=== PATIENT | female | born 1960 | race Caucasian/White ===

== ENCOUNTER 2018-09-18 16:57 | Inpatient (IN) | payer SELFPAY ==
[~2018-09-18] VITALS: Ht 167.6 cm; Wt 92.8 kg
[2018-09-18 19:03] LABS: BASOPHILS % (AUTO) 0.3 % (0.0-2.0); EOSINOPHILS % (AUTO) 5.6 % (0.0-6.0); HEMATOCRIT 42 % (33-45); HEMOGLOBIN 14.1 g/dL (11.5-14.8); LYMPHOCYTES # (AUTO) 1.1 /CMM (0.8-4.8); LYMPHOCYTES % (AUTO) 14.6 % (20.0-44.0); MEAN CORPUSCULAR HGB CONC 33 g/dl (31.0-36.0); MEAN CORPUSCULAR VOLUME 95 fL (82-100); MONOCYTES # (AUTO) 0.5 /CMM (0.1-1.30); MONOCYTES % (AUTO) 6.3 % (2.0-12.0); NEUTROPHILS # (AUTO) 5.6 /CMM (1.8-8.9); NEUTROPHILS % (AUTO) 73.2 % (43.0-81.0); PLATELET COUNT (AUTO) 259 /CMM (150-450); RED BLOOD CELL COUNT(AUTO) 4.45 MIL/uL (4.0-5.2); WHITE BLOOD COUNT (AUTO) 7.7 K/uL (4.3-11.0)
[2018-09-18 19:23] LABS: CARBON DIOXIDE 29 mmol/L (21-32); CHLORIDE 103 mmol/L (98-107); CREATININE 0.8 mg/dL (0.6-1.3); GLUCOSE 107 mg/dL (74-106); POTASSIUM 3.1 mmol/L (3.5-5.1); SODIUM SERUM 140 mmol/L (136-145); UREA NITROGEN, BLOOD 15 mg/dL (7-18)
[2018-09-18 19:33] LABS: ALANINE AMINOTRANSFERASE 24 U/L (12-78); ALBUMIN 3.3 g/dL (3.4-5.0); ALKALINE PHOSPHATASE 75 U/L (46-116); ASPARTATE AMINOTRANSFERASE 22 U/L (15-37); B-TYPE NATRIURETIC PEPTIDE 250 PG/ML (0-125); BILIRUBIN,DIRECT 0.1 mg/dL (0.0-0.2); BILIRUBIN,TOTAL 0.2 mg/dL (0.2-1.0); TOTAL PROTEIN, SERUM 9.2 g/dL (6.4-8.2)
[2018-09-18] MEDS ORDERED: VANCOMYCIN 1 GM in IV D5W 250 ML IV ONE (20:30)
[2018-09-18] MEDS ORDERED: PIPERACILLIN /TAZOBACTAM 3.375 G in IV D5W 50 ML IV ONE (20:30)
[2018-09-18] MEDS ORDERED: POTASSIUM CHLORIDE 20 MEQ TAB.PRT.SR PO ONE ×2 (21:00→21:30)
--- NOTE | 2018-09-18 21:05 | NUR ---
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
--- NOTE | 2018-09-18 21:11 | NUR ---
CALLED NURSING SUP. FOR MS BED
[2018-09-18] MEDS ORDERED: HYDROCODONE/APAP 5/325MG 1 EACH TABLET PO PRN (21:30)
[2018-09-18] MEDS ORDERED: ONDANSETRON HCL/PF 4 MG/2 ML VIAL IVP PRN (21:30)
[2018-09-18] MEDS ORDERED: ZOLPIDEM TARTRATE 5 MG TABLET PO PRN (21:30)
[2018-09-18] MEDS ORDERED: hydrALAZINE HCL 25 MG TABLET PO PRN (21:30)
[2018-09-18] MEDS ORDERED: MAG HYDROX/AL HYDROX/SIMETH 30 ML UDC PO PRN (21:30)
[2018-09-18] MEDS ORDERED: ACETAMINOPHEN 325 MG TABLET PO PRN (21:30)
[2018-09-18] MEDS ORDERED: MAGNESIUM HYDROXIDE 30 ML UDC PO PRN (21:30)
[2018-09-18] MEDS ORDERED: Z GUARD REMEDY 2 OZ OINT TP PRN (21:30)
--- NOTE | 2018-09-18 21:53 | NUR ---
MS [id number]
--- NOTE | 2018-09-18 22:21 | NUR ---
REPORT GIVEN ERNESTINA FARLEY FOR ALEX; SAGRARIO HASKINSE TRANSPORTED TO 3RD FLOOR VIA GURNEY WITH EMT
[2018-09-18 23:00] VITALS: BP 166/96
--- NOTE | 2018-09-18 23:00 | NUR ---
ADMISSION NOTES: RECEIVED REPORT FROM BRITTNI SCOTT RN. PT BROUGHT TO THE UNIT VIA GURNEY. PT A/O X3 UZBEK SPEAKING ONLY, MET WITH SON AT BED SIDE. ORIENTED PT TO UNIT POLICY AND HOURLY ROUNDING, USE OF CALL LIGHT. INVENTORY OF BELONGINGS COMPLETED BY DIANN LECHUGA. SKIN ASSESSMENT PERFORMED,PLEASE SEE SKIN ASSESSMENT LOG. INITIAL WOUND CARE PERFORMED, WOUND CONSULT OBTAINED. BLE OFFLOADED. VS TAKEN AND RECORDED. PT UNABLE TO TAKE REMAINING POTASSIUM PILLS. SAFETY PRECAUTIONS FOR FALL INITIATED, CALL LIGHT IN REACH, WILL CONTINUE MONITORING PT.
--- NOTE | 2018-09-18 23:30 | NUR ---
RN NOTES: PT REFUSING TO TAKE POTASSIUM TABLET AT THIS TIME, EDUCATION PROVIDED TO PT AND FAMILY
[2018-09-19] MEDS: ENOXAPARIN SODIUM 40 MG/0.4 ML DISP.SYRIN SQ SCH ×2 (00:17→21:49)
--- NOTE | 2018-09-19 00:18 | NUR ---
PRN ZOFRAN: PT NAUSEATED, REQUESTING FOR MEDICATION, PRN ZOFRAN 4MG IVP ADMINISTERED AT THIS TIME. WILL CONTINUE TO MONITOR AND REASSES
--- NOTE | 2018-09-19 00:32 | NUR ---
RN NOTES: MD CURRENTLY IN THE UNIT, INFORM ABOUT PT'S BEING NAUSEATED AND DOES NOT WANT TO TAKE THE 40 MEQ POTASSIUM, PER MD ITS OKAY NOT TO GIVE IT. MD MADE AWARE ABOUT PT'S TEMP 100.8 ZOFRAN FOR NAUSEA JUST ADMINISTERED, PER MD TO GIVE TYLENOL LATER WHEN NAUSEA SUBSIDES.
--- NOTE | 2018-09-19 00:53 | NUR ---
PRN TYLENOL: PRN TYLENOL 650 MG TAB ADMINISTERED FOR TEMP 103.0, COOLING MEASURES PROVIDED
--- NOTE | 2018-09-19 02:15 | NUR ---
RN NOTES: RECHECK PT'S VS, NOTED TEMP 101.5, GIVEN TYLENOL AT 0053, COOLING MEASURES PROVIDED, REMOVED EXCESS THICK BLANKET, WILL RECHECK TEMP AGAIN
[2018-09-19 02:19] VITALS: BP 101/39
[2018-09-19] MEDS ORDERED: HYDR25TA4 PO (02:19)
[2018-09-19] MEDS ORDERED: ASPI-605 PO (02:19)
[2018-09-19] MEDS ORDERED: PIPERACILLIN /TAZOBACTAM 2.25 G VIAL IV ONE (04:50)
--- NOTE | 2018-09-19 05:12 | NUR ---
RN NOTES: NEW ORDER FOR ZOSYN 4.5GM IVPB, MEDICATION OVERRIDE BY RECYCLE DRIVERCORINNE RAYO, MEDICATION AVAILABLE IS 2.25GM IV ZOSYN, (2) 2.25GM ZOSYN WILL BE ADMINISTER AT THIS TIME
[2018-09-19] MEDS ORDERED: PIPERACILLIN /TAZOBACTAM 4.5 G in IV D5W 50 ML IV SCH (06:00)
--- NOTE | 2018-09-19 06:53 | NUR ---
RN CLOSING NOTES: PT REMAINS ON RA, DENIES ANY PAIN OR DISCOMFORT. LATEST TEMP 99. IV ACCESS REMAINS PATENT AND FLUSHING WELL, ON HL. BLE DRESSING REMAIN C/D/I, NO ACTIVE BLEEDING NOTED. FOR WOUND AND SURGICAL CONSULT TODAY. VS REMAINS STABLE, NEEDS ATTENDED. SAFETY PRECAUTIONS FOR FALL REMAINS ENGAGED, CALL LIGHT IN REACH, WILL ENDORSE TO DAY RN FOR CONTINUITY OF CARE.
[2018-09-19 07:00] VITALS: BP 111/63
--- NOTE | 2018-09-19 07:00 | NUR ---
RECEIVED PT IN STABLE CONDITION . WILL CONTINUE TO MONITOR
[2018-09-19] MEDS ORDERED: FEE PK DOSING 1 MIN EA MC ONE (07:53)
[2018-09-19 08:00] VITALS: BP 111/63
[2018-09-19 08:08] LABS: BASOPHILS % (AUTO) 0.3 % (0.0-2.0); EOSINOPHILS % (AUTO) 0.2 % (0.0-6.0); HEMATOCRIT 40 % (33-45); HEMOGLOBIN 13.5 g/dL (11.5-14.8); LYMPHOCYTES # (AUTO) 0.2 /CMM (0.8-4.8); LYMPHOCYTES % (AUTO) 1.6 % (20.0-44.0); MEAN CORPUSCULAR HGB CONC 34 g/dl (31.0-36.0); MEAN CORPUSCULAR VOLUME 94 fL (82-100); MONOCYTES # (AUTO) 0.1 /CMM (0.1-1.30); MONOCYTES % (AUTO) 1.4 % (2.0-12.0); NEUTROPHILS % (AUTO) 96.5 % (43.0-81.0); PLATELET COUNT (AUTO) 194 /CMM (150-450); RED BLOOD CELL COUNT(AUTO) 4.29 MIL/uL (4.0-5.2); WHITE BLOOD COUNT (AUTO) 10.3 K/uL (4.3-11.0)
[2018-09-19 08:19] LABS: CALCIUM, SERUM 8.5 mg/dL (8.5-10.1); CREATININE 1.4 mg/dL (0.6-1.3); MAGNESIUM 1.8 mg/dL (1.8-2.4); PHOSPHORUS 2.6 mg/dL (2.5-4.9); POTASSIUM 3.3 mmol/L (3.5-5.1)
[2018-09-19 08:21] LABS: THYROID STIMULATING HORMONE 1.137 uIU/mL (0.358-3.74)
[2018-09-19] MEDS: ASPIRIN 81 MG TAB.CHEW PO SCH (09:24)
[2018-09-19] MEDS: LISINOPRIL (10MG) 10 MG TABLET PO SCH (09:24)
[2018-09-19] MEDS: VANCOMYCIN 1 GM in IV D5W 250 ML IV SCH ×2 (10:22→21:49)
[2018-09-19] MEDS ORDERED: POTASSIUM CHLORIDE 20 MEQ TAB.PRT.SR PO SCH (11:30)
[2018-09-19] MEDS: PIPERACILLIN /TAZOBACTAM 3.375 G in IV D5W 50 ML IV SCH ×2 (12:15→18:57)
[2018-09-19 16:00] VITALS: BP 123/56
--- NOTE | 2018-09-19 19:24 | NUR ---
PATIENT S/P DEBRIDEMENT AT BED SIDE, DRESSING IS CLEAN. IV ACCESS REMAINS PATENT AND FLUSHING WELL HL.VS ARE STABLE, NO FEVER. SAFETY PRECAUTIONS FOR FALL OBSERVED, CALL LIGHT IN REACH, WILL ENDORSE TO NEXT SHIFT FOR CONTINUITY OF CARE.
--- NOTE | 2018-09-19 19:30 | NUR ---
MS/RN OPENING NOTES PT RECEIVED ASLEEP, DAUGHTER AT BEDSIDE. OPENS EYES TO NAME. A/OX3. ON ROOM AIR, BREATHING EVEN AND UNLABORED. DENIES SOB AND PAIN. IN NO ACUTE DISTRESS. IV TO LEFT HAND PATENT AND INTACT. BILATERAL LEG DRESSINGS C/D/I. BED IN LOW/LOCKED POSITION WITH CALL LIGHT IN REACH, HOB ELEVATED. BILATERAL UPPER SIDE RAILS IN PLACE. WILL CONTINUE TO MONITOR
[2018-09-19 20:00] VITALS: BP 122/71
--- NOTE | 2018-09-19 22:00 | NUR ---
MS/RN NOTES PT SITTING IN THE CHAIR. NEW LINENS PROVIDED. IV TO LEFT HAND INFILTRATED. ASSISTED PT BACK TO BED. NEW IV INSERTED TO RIGHT HAND #22, WITH GOOD BLOOD RETURN AND FLUSHES WELL. VANCOMYCIN INFUSING
[2018-09-20] MEDS: PIPERACILLIN /TAZOBACTAM 3.375 G in IV D5W 50 ML IV SCH ×4 (00:30→18:25)
--- NOTE | 2018-09-20 00:39 | NUR ---
MS/RN NOTES PT WITH EYES CLOSED, OPENS EYES TO BEDSIDE NOISE. DAUGHTER REMAINS AT BEDSIDE. NO NEEDS VERBALIZED AT THIS TIME.
--- NOTE | 2018-09-20 04:36 | NUR ---
MS/RN NOTES PT ASLEEP. IN NO ACUTE DISTRESS.
[2018-09-20 06:50] LABS: CALCIUM, SERUM 8.4 mg/dL (8.5-10.1); CREATININE 1.1 mg/dL (0.6-1.3); POTASSIUM 3.4 mmol/L (3.5-5.1)
--- NOTE | 2018-09-20 07:01 | NUR ---
WOUND CARE CONSULT WOUND CARE RECEIVED CONSULT FOR WOUNDS. WOUND CARE WILL DEFER CONSULT AND ALL TREATMENT PLANS TO DPM DR SAMSON WHO IS CURRENTLY FOLLOWING THIS PATIENT. PATIENT WITH NASH AT 18, ALL PRESSURE ULCER PREVENTION MEASURES ARE NOTED TO BE IN PLACE. WILL SEE PRN.
--- NOTE | 2018-09-20 07:13 | NUR ---
MS/RN CLOSING NOTES PT AWAKE, RESTING COMFORTABLY IN BED. ON ROOM AIR, BREATHING EVEN AND UNLABORED. DAUGHTER REMAINS AT BEDSIDE. DENIES SOB AND PAIN AT THIS TIME. DRESSINGS TO BLE C/D/I. IV TO RIGHT HAND PATENT AND INTACT. NO SIGNIFICANT CHANGES OVERNIGHT. SLEPT WELL DURING SHIFT. ALL NEEDS MET. BED REMAINS IN LOW/LOCKED POSITION WITH CALL LIGHT IN REACH, HOB ELEVATED AND BILATERAL UPPER SIDE RAILS IN PLACE. ENDORSED TO DAY SHIFT RN ALEX.
[2018-09-20 08:00] VITALS: BP 139/75
[2018-09-20] MEDS: ASPIRIN 81 MG TAB.CHEW PO SCH (08:32)
[2018-09-20] MEDS: LISINOPRIL (10MG) 10 MG TABLET PO SCH (08:32)
[2018-09-20] MEDS: VANCOMYCIN 1 GM in IV D5W 250 ML IV SCH ×2 (10:21→21:35)
[2018-09-20] MEDS ORDERED: POTASSIUM CHLORIDE 20 MEQ TAB.PRT.SR PO SCH (11:30)
[2018-09-20 16:00] VITALS: BP 116/67
--- NOTE | 2018-09-20 19:04 | NUR ---
PT AWAKE, RESTING IN BED. ON ROOM AIR, BREATHING EVEN AND UNLABORED.SON AT BEDSIDE. DRESSINGS TO BLE INTACT. IV TO RIGHT HAND PATENT AND INTACT. ALL NEEDS MET. BED IN LOW/LOCKED POSITION WITH CALL LIGHT IN REACH, SIDE RAILS X2 UP ENDORSED TO NEXT SHIFT RN ALEX.
--- NOTE | 2018-09-20 19:20 | NUR ---
MS/RN OPENING NOTES PT RECEIVED AWAKE, FAMILY AT BEDSIDE. A/OX3. ON ROOM AIR, BREATHING EVEN AND UNLABORED. DENIES SOB AND PAIN AT THIS TIME. IN NO ACUTE DISTRESS. DRESSINGS TO BLE C/D/I. IV TO RIGHT HAND PATENT AND INTACT. NO NEEDS EXPRESSED AT THIS TIME. BED IN LOW/LOCKED POSITION WITH CALL LIGHT IN REACH. BILATERAL UPPER SIDE RAILS IN PLACE AND HOB ELEVATED. WILL CONTINUE TO MONITOR
[2018-09-20 20:00] VITALS: BP 130/70
[2018-09-20 20:06] VITALS: BP 130/70
[2018-09-20] MEDS: ENOXAPARIN SODIUM 40 MG/0.4 ML DISP.SYRIN SQ SCH (21:35)
--- NOTE | 2018-09-20 23:00 | NUR ---
PT ASLEEP, FAMILY MEMBER AT BEDSIDE. NO NEEDS ANTICIPATED AT THIS TIME. BREATHING EVEN AND UNLABORED. IN NO ACUTE DISTRESS.
[2018-09-21] MEDS: PIPERACILLIN /TAZOBACTAM 3.375 G in IV D5W 50 ML IV SCH ×3 (00:22→13:07)
--- NOTE | 2018-09-21 02:00 | NUR ---
MS/RN NOTES PT ASLEEP, BREATHING EVEN AND UNLABORED. IN NO ACUTE DISTRESS.
--- NOTE | 2018-09-21 06:53 | NUR ---
MS/RN CLOSING NOTES PT ASLEEP. FAMILY MEMBER AT BEDSIDE. ON ROOM AIR, BREATHING EVEN AND UNLABORED. DENIES SOB AND PAIN AT THIS TIME. IN NO ACUTE DISTRESS. DRESSING TO BLE C/D/I. IV TO RIGHT HAND PATENT AND INTACT. NO SIGNIFICANT CHANGES OVERNIGHT. KEPT COMFORTABLE DURING SHIFT. BED IN LOW/LOCKED POSITION WITH CALL LIGHT IN REACH. HOB ELEVATED. BILATERAL UPPER SIDE RAILS IN PLACE. WILL ENDORSE TO DAY SHIFT RN ALEX.
--- NOTE | 2018-09-21 07:30 | NUR ---
RN NOTES PATIENT A/OX4, BREATHING EVEN AND UNLABORED, NO SOB NOTED, GRANDSON AT BEDSIDE, DENIES PAIN OR DISCOMFORT NOTED, NEEDS ATTENDED, CALL LIGHT WITHIN REACH, WILL CONTINUE TO MONITOR.
[2018-09-21 07:36] LABS: CALCIUM, SERUM 8.4 mg/dL (8.5-10.1); POTASSIUM 3.5 mmol/L (3.5-5.1)
[2018-09-21 08:00] VITALS: BP 148/82
--- NOTE | 2018-09-21 08:15 | NUR ---
RN NOTES ENDORSED TO ANIBAL FARLEY FOR CONTINUITY OF CARE.
[2018-09-21] MEDS: ASPIRIN 81 MG TAB.CHEW PO SCH (08:44)
[2018-09-21] MEDS: LISINOPRIL (10MG) 10 MG TABLET PO SCH (08:45)
[2018-09-21] MEDS: VANCOMYCIN 1 GM in IV D5W 250 ML IV SCH (09:05)
--- NOTE | 2018-09-21 15:17 | NUR ---
DISCHARGE PT DISCHARGED TO HOME LEAVING WITH SON AND SPOUSE ACI GIVEN ALONG WITH [facility] AND [facility] RESOURCES FOR WOUND CLINIC FOLLOW UP. WOUND DRESSING CHANGED BEFORE DISCHARGE PIV REMOVED WITH TIP INTACT. PT AND FAMILY UNDERSTAND PLAN OF CARE AND WILL FOLLOW UP PT TKAEN OUT TO CAR BY WHEEL CHAIR AND SAFETLY PLACED INTO VEHICLE
[2018-09-21 16:00] VITALS: BP 109/60
[2018-09-21] MEDS ORDERED: LACTOBACILLUS RHAMNOSUS GG 1 EACH CAP.SPRINK PO SCH (17:00)
[2018-09-21] MEDS ORDERED: VANCOMYCIN 0.75 GM in IV D5W 250 ML IV SCH (22:00)
== END 2018-09-21 14:00 | disposition home or self-care (01) | DRG 264 ==
LOC: ER 17:00 → MED 22:13 → MEDSG2 09-19 17:48
PROVIDERS: ADMIT Internal Medicine; ATTEND Nurse Practitioner Acute Care
PROC: 0JBP0ZZ Excision of Left Lower Leg Subcutaneous Tissue and Fascia, Open Approach (ICD-10-PCS; principal; 2018-09-19)
PROC: 0JBN0ZZ Excision of Right Lower Leg Subcutaneous Tissue and Fascia, Open Approach (ICD-10-PCS; principal; 2018-09-19)
DX: I87.313 Chronic venous hypertension (idiopathic) with ulcer of bilateral lower extremity (principal); L03.116 Cellulitis of left lower limb; L97.929 Non-pressure chronic ulcer of unspecified part of left lower leg with unspecified severity; L97.919 Non-pressure chronic ulcer of unspecified part of right lower leg with unspecified severity; L03.115 Cellulitis of right lower limb; E78.5 Hyperlipidemia, unspecified; I73.9 Peripheral vascular disease, unspecified; I10 Essential (primary) hypertension; I87.2 Venous insufficiency (chronic) (peripheral); E66.9 Obesity, unspecified; Z68.33 Body mass index [BMI] 33.0-33.9, adult
CPT/HCPCS: 36415; 71045-TC; 73590-TC; 80048-TC; 80061-TC; 80076-TC; 80202-TC; 83540-TC; 83605-TC; 83735-TC; 83880; 84100-TC; 84443-TC; 84484-TC; 85025-TC; 85730-TC; 87040-TC; 87070-TC; 87081-TC; 87186-TC; 93970-TC; A4217; A6253; A6403; G0378; J1650; J2405; J2543; J3370; J7050; J7060; Q2036